=== PATIENT | female | born 1975 | race Caucasian/White ===

== ENCOUNTER 2020-05-03 08:42 | Outpatient (CLI) | payer OTHER, SELFPAY ==
--- NOTE | ~2020-05-03 | US_ITS ---
EXAMINATION: US pelvic complete w TV EXAM DATE: 05/03/2020 09:25 INDICATION: Irregular menstruation. Polymenorrhea. TECHNIQUE: Pelvic transabdominal and transvaginal sonogram was performed. There are multiple graysca le and Doppler images available for interpretation. There is no prior study for comparison. FINDINGS: Uterus measures 9.9 x 4.8 x 4.5 cm, is anteverted and morphologically normal. Endometrial stripe measures 10 mm, within normal limits. There is no free pelvic fluid. Right adnexa: The ovary measures 2.1 x 1.6 x 1.4 cm and is morphologically normal. Ovarian vascular f low confirmed. Left adnexa: The ovary measures 3.8 x 2.7 x 2.1 cm and is morphologically normal with the dominant fo llicle. Ovarian vascular flow confirmed. IMPRESSION: 1. Unremarkable pelvic ultrasound exam. Reviewed, dictated and finalized at location B.
== END 2020-05-03 08:43 | disposition home or self-care (01) ==
PROVIDERS: PCP Internal Medicine; Visit Provider Internal Medicine
DX: N92.0 Excessive and frequent menstruation with regular cycle (principal)
CPT/HCPCS: 76830; 76856